=== PATIENT | male | born 1960 | race Caucasian/White ===

== ENCOUNTER 2021-04-09 15:39 | Inpatient (IN) ==
[2021-04-09 16:53] LABS: Basophils % 0.4 %; Hematocrit 51.3 % (37.5-50.1); Hemoglobin 17.1 g/dL (12.9-16.9); Immature Granulocytes % 0.6 % (0-4); Lymphocytes # 1.1 K/mcL (0.6-4.6); Lymphocytes % 16.2 %; Mean Corpuscular HGB Conc 33.3 g/dL (31.6-35.5); Mean Corpuscular Hemoglobin 29.7 pg (28.0-33.3); Mean Corpuscular Volume 89.2 fL (83.0-100.0); Mean Platelet Volume 10.2 fL (9.4-12.4); Monocytes # 0.3 K/mcL (0.0-1.3); Monocytes % 4.2 %; Neutrophils # 5.5 K/mcL (1.6-8.9); Platelet Count 228 K/mcL (140-400); Red Blood Count 5.75 M/mcL (4.19-5.50); Red Cell Distribution Width 13.1 % (11.5-14.5); Segmented Neutrophils % 78.6 %
[2021-04-09 16:57] LABS: Alanine Aminotransferase 52 Units/L (7-52); Albumin/Globulin Ratio 1.2 (1.1-2.2); Alkaline Phosphatase 31 Units/L (34-104); Aspartate Amino Transferase 68 Units/L (13-39); BUN/Creatinine Ratio 21 (6-26); Bilirubin,Direct 0.2 mg/dL (0.0-0.2); Bilirubin,Indirect 0.5 mg/dL (0.0-1.0); Bilirubin,Total 0.7 mg/dL (0.3-1.0); Blood Urea Nitrogen 27 mg/dL (8-23); Calcium 8.7 mg/dL (8.6-10.3); Carbon Dioxide 24 mEq/L (23-29); Chloride 99 mEq/L (98-107); Globulin 3.4 g/dL (2.4-3.5); Glucose 137 mg/dL (70-105); Magnesium 2.5 mg/dL (1.6-2.6); Osmolality,Calculated 289 (280-300); Phosphorous 3.6 mg/dL (2.7-4.5); Potassium 3.8 mEq/L (3.5-5.1); Sodium 136 mEq/L (136-145); Total Protein 7.4 g/dL (6.4-8.9); Troponin I 0.03 ng/mL (< 0.04); eGFR For African Americans > 60 (> 60); eGFR For Non-African Americans 56 (> 60)
[2021-04-09 17:01] LABS: INR 1.2
[2021-04-09 17:18] LABS: Platelet Estimate Normal (Normal); Reactive Lymphocytes Present (Not Present)
[2021-04-09 17:47] LABS: Bacteria,Urine Few per hpf (None-Few); Bilirubin,Urine Negative (Negative); Blood,Urine Moderate (Negative); Clarity,Urine Turbid (Clear); Color,Urine Yellow (Yellow); Glucose,Urine (UA) 30 mg/dL (Normal); Granular Casts,Urine Few per lpf (None Seen); Hyaline Casts,Urine Moderate per lpf (None Seen); Ketones,Urine 40 mg/dL (Negative); Leukocyte Esterase,Urine Negative (Negative); Mucus,Urine Few per lpf (None-Few); Nitrite,Urine Negative (Negative); Protein,Urine >=600 mg/dL (Neg-Trace); RBC,Urine 0-3 per hpf (0-3); Urobilinogen,Urine Normal (Normal)
[2021-04-09] MEDS ORDERED: Isovue-370 500 ML BOTTLE IVP ONE (17:56)
[2021-04-09 18:01] LABS: Adenovirus Not Detected (Not Detect); Bordetella Pertussis Not Detected (Not Detect); Chlamydophila pneumoniae Not Detected (Not Detect); Coronavirus 229E Not Detected (Not Detect); Coronavirus HKU1 Not Detected (Not Detect); Coronavirus NL63 Not Detected (Not Detect); Coronavirus OC43 Not Detected (Not Detect); Human Metapneumovirus Not Detected (Not Detect); Human Rhinovirus/Enterovirus Not Detected (Not Detect); Influenza A Subtype 2009 H1 Not Detected (Not Detect); Influenza B Not Detected (Not Detect); Mycoplasma pneumoniae Not Detected (Not Detect); Parainfluenza Virus 1 Not Detected (Not Detect); Parainfluenza Virus 2 Not Detected (Not Detect); Parainfluenza Virus 3 Not Detected (Not Detect); Parainfluenza Virus 4 Not Detected (Not Detect); Respiratory Syncytial Virus Not Detected (Not Detect)
[2021-04-09 18:03] LABS: SARS-CoV-2 DETECTED (Not Detect)
[2021-04-09] MEDS ORDERED: *HR* HYDROcodone/Acet 5/325 mg TABLET PO PRN (21:12)
[2021-04-09] MEDS ORDERED: Naloxone 0.4 MG/ML INJ IVP PRN (21:12)
[2021-04-09] MEDS ORDERED: Acetaminophen 325 MG TABLET PO PRN (21:12)
[2021-04-09] MEDS ORDERED: Ondansetron 4 MG/2 ML VIAL IVP PRN (21:12)
[2021-04-09] MEDS ORDERED: traZODone 50 MG TABLET PO PRN (21:26)
[2021-04-09] MEDS ORDERED: Ringers Solution, Lactated 500 ML IVC ONE (21:45)
[2021-04-09] MEDS ORDERED: Artificial Tears SOLN 15 ML BOTTLE BOTH EYES SCH (22:00)
[2021-04-09 22:30] LABS: C-Reactive Protein 43 mg/L (Less than 10); Lactate Dehydrogenase 473 Units/L (140-271)
[2021-04-09 22:47] LABS: Ferritin 931 ng/mL (20-250)
[2021-04-09] MEDS: Ipratropium 1 PUFF INHALER IH SCH ×2 (23:19→23:39)
[2021-04-09 23:32] LABS: ABG Base Excess 0 mEq/L (-2 to 3); ABG HCO3 21 mEq/L (21-27); ABG Oxygen Saturation 87 % (95-98); ABG PCO2 26 mmHg (35-45); ABG PH 7.52 pH Units (7.32-7.45); ABG PO2 45 mmHg (85-104); ABG TCO2 22 mEq/L (20-26)
[2021-04-10] MEDS: Melatonin 3 MG TABLET PO PRN ×2 (00:23→23:48)
[2021-04-10] MEDS: Saliva Stimulant 44.3ml BOTTLE PO SCH ×5 (00:24→21:15)
[2021-04-10] MEDS: Saline Nasal Spray 44 ML BOTTLE NS SCH ×5 (00:24→21:15)
[2021-04-10 01:36] LABS: Basophils % 0.3 %; Hematocrit 47.1 % (37.5-50.1); Hemoglobin 15.8 g/dL (12.9-16.9); Immature Granulocytes % 0.4 % (0-4); Lymphocytes # 0.9 K/mcL (0.6-4.6); Lymphocytes % 13.4 %; Mean Corpuscular HGB Conc 33.5 g/dL (31.6-35.5); Mean Corpuscular Hemoglobin 29.4 pg (28.0-33.3); Mean Corpuscular Volume 87.7 fL (83.0-100.0); Monocytes # 0.3 K/mcL (0.0-1.3); Monocytes % 4.9 %; Platelet Count 209 K/mcL (140-400); Red Blood Count 5.37 M/mcL (4.19-5.50); Red Cell Distribution Width 13.1 % (11.5-14.5); White Blood Count 6.7 K/mcL (4.3-11.1)
[2021-04-10 01:39] LABS: Neutrophils # 5.4 K/mcL (1.6-8.9)
[2021-04-10 01:44] LABS: INR 1.3
[2021-04-10 01:52] LABS: Chol/HDL Ratio 4.8 (0-4.9); Platelet Estimate Normal (Normal)
[2021-04-10 01:56] LABS: Alanine Aminotransferase 58 Units/L (7-52); Albumin 3.3 g/dL (3.5-5.7); Alkaline Phosphatase 26 Units/L (34-104); Aspartate Amino Transferase 70 Units/L (13-39); BUN/Creatinine Ratio 31 (6-26); Bilirubin,Total 0.6 mg/dL (0.3-1.0); Blood Urea Nitrogen 28 mg/dL (8-23); C-Reactive Protein 40 mg/L (Less than 10); Calcium 8.1 mg/dL (8.6-10.3); Carbon Dioxide 22 mEq/L (23-29); Chloride 103 mEq/L (98-107); Globulin 3.2 g/dL (2.4-3.5); Glucose 127 mg/dL (70-105); Iron 19 mcg/dL (65-175); Lactate Dehydrogenase 403 Units/L (140-271); Osmolality,Calculated 289 (280-300); Sodium 136 mEq/L (136-145); Total Protein 6.5 g/dL (6.4-8.9); eGFR For African Americans > 60 (> 60); eGFR For Non-African Americans > 60 (> 60)
[2021-04-10 02:24] LABS: Folate > 22.3 ng/mL (3.0-16.0); Vitamin B12 1034 pg/mL (250-1100)
[2021-04-10 03:16] LABS: Ferritin 1021 ng/mL (20-250)
[2021-04-10] MEDS: Ipratropium 1 PUFF INHALER IH SCH ×6 (04:26→23:44)
[2021-04-10] MEDS: *HR* Heparin 5,000 UNIT/ML VIAL SQ SCH ×3 (06:46→21:15)
[2021-04-10] MEDS ORDERED: Chlorhexidine Rinse 15 ML MOUTHWASH MM SCH (09:00)
[2021-04-10] MEDS ORDERED: dexAMETHasone 4 MG TABLET PO SCH (09:00)
[2021-04-10] MEDS ORDERED: Benzonatate 100 MG CAPSULE PO PRN (10:02)
[2021-04-10] MEDS: Aspirin 81 MG TAB.CHEW PO SCH (10:14)
[2021-04-10] MEDS: Cholecalciferol (D-3) 1,000 UNIT (25MCG) TABLET PO SCH (10:14)
[2021-04-10] MEDS: Multivit/Ca/Min/Fe/FA 1 TAB TABLET PO SCH (10:15)
[2021-04-11] MEDS: Ipratropium 1 PUFF INHALER IH SCH ×6 (04:31→23:56)
[2021-04-11] MEDS: *HR* Heparin 5,000 UNIT/ML VIAL SQ SCH (05:37)
[2021-04-11 05:56] LABS: Basophils % 0.4 %; Hematocrit 44.9 % (37.5-50.1); Hemoglobin 14.8 g/dL (12.9-16.9); Immature Granulocytes % 0.6 % (0-4); Lymphocytes # 1.2 K/mcL (0.6-4.6); Lymphocytes % 16.4 %; Mean Corpuscular Hemoglobin 29.4 pg (28.0-33.3); Mean Corpuscular Volume 89.1 fL (83.0-100.0); Mean Platelet Volume 10.2 fL (9.4-12.4); Monocytes # 0.5 K/mcL (0.0-1.3); Monocytes % 7.6 %; Platelet Count 232 K/mcL (140-400); Red Blood Count 5.04 M/mcL (4.19-5.50); Red Cell Distribution Width 13.2 % (11.5-14.5); White Blood Count 7.1 K/mcL (4.3-11.1)
[2021-04-11 05:58] LABS: Neutrophils # 5.3 K/mcL (1.6-8.9)
[2021-04-11 07:01] LABS: Carbon Dioxide 22 mEq/L (23-29)
[2021-04-11] MEDS: Multivit/Ca/Min/Fe/FA 1 TAB TABLET PO SCH (08:13)
[2021-04-11] MEDS: Aspirin 81 MG TAB.CHEW PO SCH (08:14)
[2021-04-11] MEDS: Cholecalciferol (D-3) 1,000 UNIT (25MCG) TABLET PO SCH (08:14)
[2021-04-11] MEDS: Saliva Stimulant 44.3ml BOTTLE PO SCH ×4 (08:30→21:34)
[2021-04-11] MEDS: Saline Nasal Spray 44 ML BOTTLE NS SCH ×4 (08:30→21:37)
[2021-04-11 08:53] LABS: Alanine Aminotransferase 51 Units/L (7-52); Albumin 3.3 g/dL (3.5-5.7); Albumin/Globulin Ratio 1.1 (1.1-2.2); Alkaline Phosphatase 25 Units/L (34-104); Aspartate Amino Transferase 44 Units/L (13-39); BUN/Creatinine Ratio 41 (6-26); Bilirubin,Total 0.6 mg/dL (0.3-1.0); Blood Urea Nitrogen 37 mg/dL (8-23); Calcium 8.3 mg/dL (8.6-10.3); Chloride 105 mEq/L (98-107); Globulin 2.9 g/dL (2.4-3.5); Glucose 131 mg/dL (70-105); Osmolality,Calculated 296 (280-300); Potassium 3.9 mEq/L (3.5-5.1); Sodium 138 mEq/L (136-145); Total Protein 6.2 g/dL (6.4-8.9); eGFR For African Americans > 60 (> 60); eGFR For Non-African Americans > 60 (> 60)
[2021-04-11 10:49] LABS: % Iron Saturation 9 % (20-55); Transferrin 153 mg/dL (203-362)
[2021-04-11] MEDS ORDERED: Furosemide 40 MG/4 ML VIAL IVP ONE ×2 (11:15→17:59)
[2021-04-11] MEDS: Melatonin 3 MG TABLET PO PRN (21:51)
[2021-04-12] MEDS: Ipratropium 1 PUFF INHALER IH SCH ×6 (03:42→23:22)
[2021-04-12] MEDS: *HR* Enoxaparin 40 MG/0.4 ML SYRINGE SQ SCH (05:05)
[2021-04-12 05:59] LABS: Basophils % 0.4 %; Hematocrit 45.8 % (37.5-50.1); Hemoglobin 15.3 g/dL (12.9-16.9); Immature Granulocytes % 0.4 % (0-4); Lymphocytes # 1.2 K/mcL (0.6-4.6); Lymphocytes % 18.2 %; Mean Corpuscular HGB Conc 33.4 g/dL (31.6-35.5); Mean Corpuscular Hemoglobin 29.8 pg (28.0-33.3); Mean Corpuscular Volume 89.3 fL (83.0-100.0); Mean Platelet Volume 10.2 fL (9.4-12.4); Monocytes # 0.6 K/mcL (0.0-1.3); Monocytes % 8.7 %; Neutrophils # 4.9 K/mcL (1.6-8.9); Platelet Count 277 K/mcL (140-400); Red Blood Count 5.13 M/mcL (4.19-5.50); Red Cell Distribution Width 12.9 % (11.5-14.5); Segmented Neutrophils % 72.3 %; White Blood Count 6.8 K/mcL (4.3-11.1)
[2021-04-12 06:44] LABS: Platelet Estimate Normal (Normal)
[2021-04-12 07:08] LABS: Alanine Aminotransferase 84 Units/L (7-52); Albumin 3.4 g/dL (3.5-5.7); Albumin/Globulin Ratio 1.1 (1.1-2.2); Alkaline Phosphatase 24 Units/L (34-104); Aspartate Amino Transferase 57 Units/L (13-39); BUN/Creatinine Ratio 41 (6-26); Bilirubin,Total 0.6 mg/dL (0.3-1.0); Blood Urea Nitrogen 37 mg/dL (8-23); Calcium 8.5 mg/dL (8.6-10.3); Carbon Dioxide 21 mEq/L (23-29); Chloride 105 mEq/L (98-107); Glucose 123 mg/dL (70-105); Osmolality,Calculated 298 (280-300); Potassium 3.8 mEq/L (3.5-5.1); Sodium 139 mEq/L (136-145); Total Protein 6.4 g/dL (6.4-8.9); eGFR For African Americans > 60 (> 60); eGFR For Non-African Americans > 60 (> 60)
[2021-04-12] MEDS: Saline Nasal Spray 44 ML BOTTLE NS SCH ×4 (07:39→19:38)
[2021-04-12] MEDS: Cholecalciferol (D-3) 1,000 UNIT (25MCG) TABLET PO SCH (07:40)
[2021-04-12] MEDS: Aspirin 81 MG TAB.CHEW PO SCH (07:40)
[2021-04-12] MEDS: Multivit/Ca/Min/Fe/FA 1 TAB TABLET PO SCH (07:40)
[2021-04-12] MEDS: Saliva Stimulant 44.3ml BOTTLE PO SCH ×4 (07:40→19:38)
[2021-04-12] MEDS ORDERED: Furosemide 40 MG/4 ML VIAL IVP ONE (10:13)
[2021-04-12] MEDS: Melatonin 3 MG TABLET PO PRN (23:45)
[2021-04-13 03:06] LABS: Basophils % 0.3 %; Hematocrit 45.3 % (37.5-50.1); Hemoglobin 14.9 g/dL (12.9-16.9); Immature Granulocytes % 0.5 % (0-4); Lymphocytes # 1.5 K/mcL (0.6-4.6); Lymphocytes % 19.4 %; Mean Corpuscular HGB Conc 32.9 g/dL (31.6-35.5); Mean Corpuscular Hemoglobin 29.3 pg (28.0-33.3); Mean Corpuscular Volume 89.2 fL (83.0-100.0); Mean Platelet Volume 10.5 fL (9.4-12.4); Monocytes # 0.8 K/mcL (0.0-1.3); Neutrophils # 5.2 K/mcL (1.6-8.9); Platelet Count 310 K/mcL (140-400); Red Blood Count 5.08 M/mcL (4.19-5.50); Red Cell Distribution Width 12.7 % (11.5-14.5); Segmented Neutrophils % 68.8 %; White Blood Count 7.5 K/mcL (4.3-11.1)
[2021-04-13 03:31] LABS: BUN/Creatinine Ratio 45 (6-26); Blood Urea Nitrogen 35 mg/dL (8-23); Calcium 8.6 mg/dL (8.6-10.3); Carbon Dioxide 25 mEq/L (23-29); Chloride 101 mEq/L (98-107); Glucose 113 mg/dL (70-105); Osmolality,Calculated 295 (280-300); Potassium 4.1 mEq/L (3.5-5.1); Sodium 138 mEq/L (136-145); eGFR For African Americans > 60 (> 60); eGFR For Non-African Americans > 60 (> 60)
[2021-04-13] MEDS: Ipratropium 1 PUFF INHALER IH SCH ×6 (03:37→23:58)
[2021-04-13 04:20] LABS: Platelet Estimate Normal (Normal)
[2021-04-13] MEDS: *HR* Enoxaparin 40 MG/0.4 ML SYRINGE SQ SCH (05:24)
[2021-04-13] MEDS: Aspirin 81 MG TAB.CHEW PO SCH (07:21)
[2021-04-13] MEDS: Saliva Stimulant 44.3ml BOTTLE PO SCH ×4 (07:21→20:01)
[2021-04-13] MEDS: Cholecalciferol (D-3) 1,000 UNIT (25MCG) TABLET PO SCH (07:21)
[2021-04-13] MEDS: Multivit/Ca/Min/Fe/FA 1 TAB TABLET PO SCH (07:21)
[2021-04-13] MEDS: Saline Nasal Spray 44 ML BOTTLE NS SCH ×4 (07:21→20:01)
[2021-04-14] MEDS: Ipratropium 1 PUFF INHALER IH SCH ×5 (03:56→20:48)
[2021-04-14] MEDS: *HR* Enoxaparin 40 MG/0.4 ML SYRINGE SQ SCH (06:20)
[2021-04-14 07:09] LABS: Basophils % 0.6 %; Eosinophils % 0.3 %; Hematocrit 44.6 % (37.5-50.1); Hemoglobin 14.4 g/dL (12.9-16.9); Immature Granulocytes % 1.1 % (0-4); Lymphocytes % 27.5 %; Mean Corpuscular HGB Conc 32.3 g/dL (31.6-35.5); Mean Corpuscular Volume 89.7 fL (83.0-100.0); Mean Platelet Volume 10.5 fL (9.4-12.4); Monocytes # 0.6 K/mcL (0.0-1.3); Monocytes % 8.3 %; Neutrophils # 4.5 K/mcL (1.6-8.9); Platelet Count 325 K/mcL (140-400); Red Blood Count 4.97 M/mcL (4.19-5.50); Red Cell Distribution Width 12.8 % (11.5-14.5); Segmented Neutrophils % 62.2 %; White Blood Count 7.3 K/mcL (4.3-11.1)
[2021-04-14 08:14] LABS: BUN/Creatinine Ratio 42 (6-26); Blood Urea Nitrogen 30 mg/dL (8-23); Calcium 8.8 mg/dL (8.6-10.3); Carbon Dioxide 28 mEq/L (23-29); Chloride 100 mEq/L (98-107); Glucose 92 mg/dL (70-105); Magnesium 2.4 mg/dL (1.6-2.6); Osmolality,Calculated 292 (280-300); Phosphorous 4.4 mg/dL (2.7-4.5); Potassium 3.8 mEq/L (3.5-5.1); Sodium 138 mEq/L (136-145); eGFR For African Americans > 60 (> 60); eGFR For Non-African Americans > 60 (> 60)
[2021-04-14] MEDS: Cholecalciferol (D-3) 1,000 UNIT (25MCG) TABLET PO SCH (09:38)
[2021-04-14] MEDS: Aspirin 81 MG TAB.CHEW PO SCH (09:38)
[2021-04-14] MEDS: Multivit/Ca/Min/Fe/FA 1 TAB TABLET PO SCH (09:38)
[2021-04-14] MEDS: Saline Nasal Spray 44 ML BOTTLE NS SCH ×4 (11:04→20:23)
[2021-04-14] MEDS: Saliva Stimulant 44.3ml BOTTLE PO SCH ×4 (11:04→20:23)
[2021-04-15] MEDS: Ipratropium 1 PUFF INHALER IH SCH ×4 (00:02→12:24)
[2021-04-15] MEDS: *HR* Enoxaparin 40 MG/0.4 ML SYRINGE SQ SCH (04:42)
[2021-04-15 05:07] LABS: Basophils % 0.2 %; Eosinophils # 0.1 K/mcL (0.0-0.6); Eosinophils % 0.6 %; Hematocrit 42.1 % (37.5-50.1); Hemoglobin 13.8 g/dL (12.9-16.9); Immature Granulocytes % 1.6 % (0-4); Lymphocytes # 1.9 K/mcL (0.6-4.6); Lymphocytes % 23.4 %; Mean Corpuscular HGB Conc 32.8 g/dL (31.6-35.5); Mean Corpuscular Hemoglobin 29.4 pg (28.0-33.3); Mean Corpuscular Volume 89.6 fL (83.0-100.0); Monocytes # 0.7 K/mcL (0.0-1.3); Monocytes % 8.4 %; Neutrophils # 5.3 K/mcL (1.6-8.9); Platelet Count 340 K/mcL (140-400); Red Cell Distribution Width 12.3 % (11.5-14.5); Segmented Neutrophils % 65.8 %; White Blood Count 8.1 K/mcL (4.3-11.1)
[2021-04-15 05:20] LABS: BUN/Creatinine Ratio 34 (6-26); Blood Urea Nitrogen 23 mg/dL (8-23); Calcium 8.6 mg/dL (8.6-10.3); Carbon Dioxide 30 mEq/L (23-29); Chloride 101 mEq/L (98-107); Glucose 92 mg/dL (70-105); Magnesium 2.3 mg/dL (1.6-2.6); Osmolality,Calculated 289 (280-300); Phosphorous 4.3 mg/dL (2.7-4.5); Potassium 3.8 mEq/L (3.5-5.1); Sodium 138 mEq/L (136-145); eGFR For African Americans > 60 (> 60); eGFR For Non-African Americans > 60 (> 60)
[2021-04-15] MEDS: Aspirin 81 MG TAB.CHEW PO SCH (09:34)
[2021-04-15] MEDS: Multivit/Ca/Min/Fe/FA 1 TAB TABLET PO SCH (09:34)
[2021-04-15] MEDS: Cholecalciferol (D-3) 1,000 UNIT (25MCG) TABLET PO SCH (09:35)
[2021-04-15] MEDS: Saline Nasal Spray 44 ML BOTTLE NS SCH (09:38)
[2021-04-15] MEDS: Saliva Stimulant 44.3ml BOTTLE PO SCH (09:38)
[2021-04-15 11:21] VITALS: BP 106/72; PULSE 65; TEMP 97.8
[2021-04-15 12:31] VITALS: O2SAT 93
== END 2021-04-15 13:48 | disposition home or self-care (01) | DRG 871 ==
LOC: EMEROOARM 15:39 → 2ANU 15:39 → SUATTDRO 20:35 → 2ANU 22:16 → 2NENU 04-10 06:00
PROVIDERS: ADMIT Internal Medicine; ATTEND Internal Medicine